=== PATIENT | female | born 1975 | race Caucasian/White ===

== ENCOUNTER → 2021-03-12 | Outpatient (CLI) | payer BC ==
--- NOTE | 2021-03-12 12:38 | RAD ---
Ultrasound of the abdomen 03/12/2021 CLINICAL HISTORY: Elevated liver transaminase. TECHNIQUE: A real-time ultrasound examination of the abdomen was performed. Multiple images were obta ined. FINDINGS: The gallbladder is not visualized consistent with a cholecystectomy. The liver is mildly enlarged measuring 20.4 cm in length. Increased echogenicity of the liver parench yma is seen consistent with mild fatty infiltration. No focal abnormality of the liver is seen. The c ommon bile duct measures 3 mm in diameter which is within normal limits. The spleen, visualized portions of the pancreas and both kidneys are within normal limits. The visualized abdominal aorta tapers normally. The inferior vena cava is within normal limits. No fr ee fluid is seen. IMPRESSION: 1. Post cholecystectomy. 2. Mild hepatomegaly with fatty infiltration of the liver. Electronically signed by: Ishan Tabor MD (03/12/2021 12:36 PM) [id number]
== END ==
LOC: US 07:43
PROVIDERS: ATTEND Family Medicine
DX: K76.0 Fatty (change of) liver, not elsewhere classified (principal); Z90.49 Acquired absence of other specified parts of digestive tract
CPT/HCPCS: 76700